=== PATIENT | female | born 2000 | race Caucasian/White ===

== ENCOUNTER 2024-03-07 16:35 | Outpatient (CLI) | payer BC, SELFPAY | END 2024-03-07 16:36 | disposition home or self-care (01) | LOC: NFLDREF 03-11 19:53 | PROVIDERS: Visit Provider Nurse Practitioner | DX: N30.01 Acute cystitis with hematuria (principal) | CPT/HCPCS: 87086; 87186 ==

== ENCOUNTER 2025-09-04 13:51 | Outpatient (CLI) | payer BC, SELFPAY ==
--- NOTE | 2025-09-04 14:00 | CRLHL7_ITS ---
For Patients: As a result of the Century Cures Act, medical imaging exams and procedure reports are released immediately into your electronic medical record. You may view this report before your referring provider. If you have questions, please contact your health care provider. OBSTETRICAL ULTRASOUND TRANSVAGINAL CLINICAL INDICATION: Dating and viability. LMP: 06/24/2025 GUILLE by LMP: 03/31/2026 Gestational age: 10 weeks 2 days PREVIOUS ULTRASOUND: No TECHNIQUE: Real-time antunez-scale imaging of the fetus was performed transvaginal. Transvaginal imaging was performed for better visualization of the endometrium and ovaries. FINDINGS: CRL: 1.6 cm, 8 weeks 0 days; GUILLE 04/16/2026 heart rate: 165 BPM Gestational sac: 3.6 cm, appears within normal limits Yolk sac: 2.9 mm, appears within normal limits Right ovary: 2.2 x 3.0 x 1.7 cm, CL Left ovary: 2.9 x 1.2 x 2.5 cm COMMENT: Patient states irregular cycles. IMPRESSION: 1. Single living intrauterine measures 8 weeks 0 days with sonographic due date of 04/16/2026. 2. Corpus luteal cyst of right ovary measures 1.9 x 1.9 x 1.8 cm. JOHN PATEL M.D. Diagnostic Radiologist [email or web address] Transcribed: 5:[address]/Dictated by: John Patel MD @ 09/04/2025 3:49:00 PM (Electronically Signed)
== END 2025-09-04 13:52 | disposition home or self-care (01) ==
LOC: US 13:52
PROVIDERS: Visit Provider Advanced Practice Midwife
DX: O34.81 Maternal care for other abnormalities of pelvic organs, first trimester (principal); N83.11 Corpus luteum cyst of right ovary; Z3A.08 8 weeks gestation of pregnancy
CPT/HCPCS: 76817

== ENCOUNTER 2025-09-04 14:55 | Outpatient (CLI) | payer BC, SELFPAY | END 2025-09-04 14:56 | disposition home or self-care (01) | PROVIDERS: Visit Provider Advanced Practice Midwife | DX: Z34.91 Encounter for supervision of normal pregnancy, unspecified, first trimester (principal) | CPT/HCPCS: 83020; 83021; 85660; 86703; 86704; 86706; 86762; 86780; 86787; 86803; 86850; 86900; 86901; 87086; 87340 ==